=== PATIENT | male | born 1965 | race Caucasian/White ===

== ENCOUNTER 2017-11-26 10:33 | Outpatient (CLI) | payer OTHER, SELFPAY ==
[2017-11-26] VITALS (7 sets, daily range): BP systolic 113–150; BP diastolic 80–99; PULSE 79–85; RESP 16–21; TEMP 36.4; O2SAT 98–100
--- NOTE | 2017-11-26 10:35 | DI.RAD.S_ITS ---
PROCEDURE: PAIN L/S TRANSFORAMINAL INJECT INDICATIONS: HNP with left lower extremity radicular FINDINGS: Fluoroscopic spot filming was performed to verify placement of spinal needles at the L3-L4 level(s), as labeled on the films. Appropriate location(s) of the needle tip(s) was confirmed by injection of iodinated contrast. Dictated by: Sanjay Burger M.D. on 11/27/2017 at 10:30 Approved by: Sanjay Burger M.D. on 11/27/2017 at 10:31
--- NOTE | 2017-11-26 13:19 | P.PCN_ITS ---
Procedures Date/Time Date of procedure: 11/26/17 Time of procedure: 13:17 General Procedure description: PROVIDER: Cortez Henry DO Operative Note PREOP DIAGNOSIS 1. FORAMINAL STENOSIS WITH LE SYMPTOMS, POST OP DIAGNOSIS 1. FORAMINAL STENOSIS WITH LE SYMPTOMS, PROCEDURES 1. FLUOROSCOPICALLY GUIDED CONTRAST CONTROLLED TRANSFORAMINAL EPIDURAL STEROID INJECTION - LEFT L3/4 TFESI SURGEON: Cortez Henry, INDICATIONS Geoff is referred by Dr. Terry for treatment of Foraminal Stenosis with left LE Symptoms FINDINGS Foraminal Nerve Root Compression secondary to disc disease and facet hypertrophy DESCRIPTION OF PROCEDURE Following denial of allergy and review of potential side effects and complications, including, but not necessarily limited to, infection, allergic reaction, local tissue breakdown, stroke, temporary or permanent nerve injury, paralysis, and possible , the patient indicated that the patient understood and agreed to proceed. An informed consent document was signed by the patient, witnessed by a nurse, and placed in the patient's chart. Additionally, other treatment options including medications, modalities, and physical therapy were reviewed with the patient. After review of previous anaesthesic history and IV conscious sedation the patient was deemed safe to proceed with todays procedure with IV conscious sedation as ASA class II designation. Safety time-out was performed to confirm patient ID, procedure to be performed and site of procedure. IV sedation was accomplished with a combination of 3mg was administered by the RN after DO order , titrated to patient comfort during the course of the procedure while the patient remained responsive to all verbal commands In the prone position following sterile prep and drape of the lumbar region, the left L3/4 posterior neuroforamen was identified fluoroscopically. The skin was anesthetized via a 25-gauge 1.5-inch needle with 1% lidocaine solution. At this point, a 25-gauge 3.5-inch spinal needle was atraumatically introduced and advanced under fluoroscopic guidance through the posterior left L3/4 neuroforamen to approximately the anterior aspect of the canal. Depth was confirmed on lateral view. Following negative aspiration, injection of approximately 1.5 cc of Isovue 200 under live fluoroscopy in the AP view confirmed excellent flow along the nerve root, into the epidural space without vascular or intrathecal uptake observed Radiological data, including multiple fluoroscopic views of the lumbosacral spine, reveal a spinal needle at the left L3/4 posterior neuroforamen. Subsequent views show flow of contrast material flowing superiorly and inferiorly along the nerve root confirming epidural flow. Subsequently, a test dose of 1.5 cc of 1% lidocaine solution was administered and patient was observed for two minutes for signs or symptoms of complications , including abdominal pain, shortness of breath, bilateral upper or lower extremity weakness, nausea and vomiting, prior to steroid injection. At this point, a total of 3 cc or 20 mg of dexamethasone and 80mg Depo medrol was injected without incident. The patient tolerated the procedure well without signs or symptoms of complications prior to transfer to the recovery area continued monitoring without incident. The patient was then transferred to the recovery area where they were observed for an appropriate time after the injection. The patient reported a VAS score of 7 prior to the procedure and a post-procedure VAS of 0. Total Fluoroscopy Time: 24.2 seconds Total Conscious Sedation Time: 24min POST OP INSTRUCTIONS The patient was provided a Pain Log to continue to record their response to the target-specific procedure prior to follow-up visit with their referring physician. Additionally, specific post-injection care instructions and a contact number to our office were provided if concerns arise regarding possible complications associated with the procedure are suspected. Cortez Henry, Complications: none
[2017-11-26] MEDS: IOPAMIDOL 15 ML VIAL 3 ML INJ (13:39)
[2017-11-26] MEDS: BUPIVACAINE 0.25% (PF) VIAL 2 ML INJ (13:44)
[2017-11-26] MEDS: DEXAMETHASONE 10 MG/ML VIAL 20 MG INJ (13:44)
[2017-11-26] MEDS: MIDAZOLAM 5 MG/5 ML VIAL IV (13:45)
[2017-11-26] MEDS: methylPREDNISolone acetate 80 MG/ML VIAL INJ (13:45)
== END 2017-11-26 14:18 | disposition home or self-care (01) ==
LOC: RAD 10:34
PROVIDERS: PCP Family Medicine Geriatric Medicine; Visit Provider Physical Medicine & Rehabilitation
DX: M48.061 Spinal stenosis, lumbar region without neurogenic claudication (principal); M51.16 Intervertebral disc disorders with radiculopathy, lumbar region
CPT/HCPCS: 64483; 99152; J1040; J1100; J2250

== ENCOUNTER → 2023-06-12 15:51 | Outpatient (CLI) | payer OTHER, SELFPAY ==
--- NOTE | 2023-06-12 15:52 | DI.RAD.S_ITS ---
PROCEDURE: XR LUMBAR SPINE MIN 4V INDICATIONS: BACK PAIN TECHNIQUE: 5 views of the lumbar spine were acquired, including bilateral oblique views. COMPARISON: None. FINDINGS: Bones: 5 nonrib-bearing vertebrae are present. There is normal bony alignment. No vertebral body compression fractures. No suspicious bony lesions. Degenerative disc disease and arthropathy noted throughout the exam particularly in the lower lumbar spine Soft tissues: Overlying bowel gas pattern is normal. No suspicious soft tissue calcifications. Moderate fecal debris in the right colon Oblique images: No pars defects. IMPRESSION: Degenerative disc disease and arthropathy without fracture or traumatic malalignment. Approved by: Deni Fisher M.D. on 06/12/2023 at 16:08
== END ==
PROVIDERS: PCP Family Medicine Geriatric Medicine; Referring Provider Physical Medicine & Rehabilitation; Visit Provider Physical Medicine & Rehabilitation
DX: M47.26 Other spondylosis with radiculopathy, lumbar region; M51.16 Intervertebral disc disorders with radiculopathy, lumbar region
CPT/HCPCS: 72110

== ENCOUNTER 2023-09-24 01:24 | Emergency (ER) | payer SELFPAY ==
[2023-09-24 01:39] VITALS: BP 137/101; PULSE 95; RESP 18; TEMP 36.3; O2SAT 95; BMI 30.4
--- NOTE | 2023-09-24 01:40 | DI.RAD.S_ITS ---
PROCEDURE: XR ANKLE RT MIN 3V INDICATIONS: R ANKLE INJURY/PAIN TECHNIQUE: 3 views of the ankle were acquired. COMPARISON: None. FINDINGS: Bones: No fractures or dislocations. Ankle mortise is normally aligned. No suspicious bony lesions. Soft tissues: No tibiotalar joint effusion. Achilles tendon appears normal. Metallic BB in the plantar soft tissues deep to the 1st metatarsal. IMPRESSION: No acute bony abnormality or significant effusion. Dictated by: Maria T Parkinson MD, PhD on 09/24/2023 at 9:07 Approved by: Maria T Parkinson MD, PhD on 09/24/2023 at 9:10
--- NOTE | 2023-09-24 01:42 | ED_ITS ---
HPI - Extremity Injury (Lower) General Chief Complaint: Extremity Injury, Lower Stated Complaint: RT LEG AND ANKLE PAIN Time Seen by Provider: 09/24/23 01:25 History of Present Illness HPI Narrative: 58-year-old male presents by private vehicle for evaluation of right leg and ankle pain. Patient states that about a week and a half ago he accidentally injured his right lateral ankle against a dresser after jumping out of bed from a nightmare. He states that since that time it has become progressively more painful and swollen. He was concerned that he may have broken his ankle in his presenting today for evaluation. Related Data Previous Rx's Medication Instructions Recorded gabapentin 300 mg capsule 300 mg PO .COMPLEX #90 caps 08/07/23 meloxicam 15 mg tablet 15 mg PO DAILY #30 tabs 08/07/23 sulfamethoxazole 800 1 tab PO Q12H #14 tabs 09/24/23 mg-trimethoprim 160 mg tablet Allergies Allergy/AdvReac Type Severity Reaction Status Date / Time codeine Allergy Mild itch Verified 09/24/23 01:39 Patient History Medical History Gait instability History of recent fall Facet arthropathy, lumbar Social History Smoking Status: Current every day smoker Smoking Status: Current every day smoker Exam Initial Vital Signs Initial Vital Signs: Vital Signs Temperature 97.4 F L 09/24/23 01:39 Pulse Rate 95 H 09/24/23 01:39 Respiratory Rate 18 09/24/23 01:39 Blood Pressure 137/101 H 09/24/23 01:39 Pulse Oximetry 95 09/24/23 01:39 Oxygen Delivery Method Room Air 09/24/23 01:39 Const: Awake, alert, disheveled, hygiene poor Cardiac: regular rate, regular rhythm RESP: unlabored, clear bilaterally, no wheezing MSK: No deformity, full range of motion, pulses equal Skin: Warm, Dry, scab over lateral R ankle, generalized warmth and swelling around ankle joint Neuro: AO x3, CN II-XII grossly intact, moves all extremities Course Orders Ordered: ED Orders 09/24/23 01:40 XR ankle RT min 3V Stat Discontinued Medications Diphtheria/Tetanus/Acell Pertussis (Tet,Diph,Pertuss(Acell),Vac/Pf 0.5 Ml Syring e) 0.5 ml IM .ONCE ONE Stop: 09/24/23 01:44 Last Admin: 09/24/23 01:49 Dose: 0.5 ml Trimethoprim/Sulfamethoxazole (Trimeth/Sulfa 160/800 (Ds) Tablet) 1 tab PO NOW ONE Stop: 09/24/23 02:31 Last Admin: 09/24/23 02:33 Dose: 1 tab Vital Signs Vital signs: Vital Signs - 8 hr 09/24/23 01:39 Temperature 97.4 F L Pulse Rate 95 H Respiratory Rate 18 Blood Pressure 137/101 H Pulse Oximetry 95 Oxygen Delivery Method Room Air MDM - Extremity Injury (Lower) Differential Diagnosis Differential diagnosis: Likely ankle sprain and strain and other (cellulitis, contusion) Imaging Data Extremity x-ray #1: My Impression: Ankle x-ray: Preliminary review, no fracture MDM Narrative Medical decision making narrative: Well-appearing patient with pain and swelling 1.5 weeks after injuring his right foot. Exam shows no deformity, patient was ambulatory on the foot. There is some erythema, warmth, swelling around the area of scab on the right lower extremity, suspect cellulitis. X-rays show no gas or fracture. Patient given initial dose of antibiotics in the emergency department and prescriptions sent to pharmacy of choice. Counseled Tylenol and ibuprofen as needed for pain and swelling and application of ice as needed for comfort. Discharge Plan Departure Patient Disposition: Home Clinical Impression: Ankle cellulitis Instructions: DI for Cellulitis -- Adult Activity Restrictions/Additional Instructions: Your x-rays do not show any fracture or break. The swelling of your ankle looks like cellulitis, or skin infection. Finish all of your antibiotics as prescribed even if you feel better. Take Tylenol and ibuprofen as needed for pain and swelling. Elevate your leg above heart level to help decrease swelling and help your pain. Follow up with a primary care doctor. If your wound and swelling do not improve then please return to the emergency department for repeat assessment. Prescriptions: New sulfamethoxazole-trimethoprim 800-160 mg tablet 1 tab PO Q12H Qty: 14 0RF No Action meloxicam 15 mg tablet 15 mg PO DAILY Qty: 30 2RF gabapentin 300 mg capsule 300 mg PO .COMPLEX Qty: 90 2RF Rx Instructions: 1-2 PO Tid to begin at HS and titrate to pain relief Referrals: Kajal Terry MD [Primary Care Provider] - Stand Alone Forms: Patient Portal/API
[2023-09-24] MEDS: TET,DIPH,PERTUSS(ACELL),VAC/PF 0.5 ML SYRINGE IM (01:49)
[2023-09-24] MEDS: TRIMETH/SULFA 160/800 (DS) TABLET 1 TAB PO (02:33)
== END 2023-09-24 02:35 | disposition home or self-care (01) ==
PROVIDERS: Emergency Provider Emergency Medicine; PCP Family Medicine Geriatric Medicine
DX: L03.115 Cellulitis of right lower limb (principal); Z23 Encounter for immunization; W22.03XA Walked into furniture, initial encounter
CPT/HCPCS: 73610; 90471; 99283; 90715